=== PATIENT | female | born 1990 | race Caucasian/White ===

== ENCOUNTER 2025-03-11 00:19 | Day surgery (SDC) | payer BC, SELFPAY ==
[2025-03-06 11:50] VITALS: BMI 30.6
--- NOTE | 2025-03-06 12:00 | PC.NURSE ---
Report to the Outpatient Waiting Room, entrance under the green pavilion located off [facility], at time __1130am on date __03/11/25 . Planned Procedure Time: __1:30pm .? Time changes happen often and if your time is changed the preop area will call you the afternoon before. - You and your visitor will be asked to self-screen and do not enter if you have any COVID symptoms. Please call surgeon if you need to reschedule. - A mask is optional within the hospital at this time. Patients may have clear liquids (water, carbonated beverages, clear teas, apple juice) until 3 hours prior to surgery with a maximum of 20 ounces. - No food from midnight until time of surgery and no smoking, or chewing tobacco (or any form of nicotine). No chewing gum, candy or mints. (10:30am) Take only the following medications with a SIP of water on the morning of surgery: ____Fluoxetine, and Levothyroxine DO NOT STOP ANY OF YOUR OTHER PRESCRIPTION MEDICATIONS PRIOR TO SURGERY EXCEPT THE FOLLOWING Hold all vitamins and supplements for 3 days per anesthesiologist. Date of last dose 03/07/25 Medications to discontinue per physician None Date to take last dose None Please no make-up, nail azeri, hairspray, perfume, deodorant, or body powder the day of surgery.? No jewelry (including any body piercings) or valuables the day of surgery, leave them at home.? Please take a shower or bath the night before, or the morning of, surgery with an antibacterial soap.? Wear comfortable, loose fitting clothing.? - Jewelry must be removed prior to entering the operating room.? Rings and piercings that are not removed may be cut off. - The hospital will not accept responsibility for valuables.? - Please leave all valuables, including medications, at home the day of surgery. If you are going home after surgery, a licensed reach lift truck driver must drive you home.? - NO public transportation without another adult if you receive anesthesia. - We recommend that an adult stay with you for 24 hours following discharge. - We also recommend that you do not drive, make important decision, drink alcoholic beverages, or take any drugs that were not prescribed by your health care provider for at least 24 hours after your discharge time. Follow any additional instructions given to you from your surgeon. Telephone instructions given to _Patient and asked if any additional questions and then verbalized understanding. Patient advised to call surgeon office or pre surgery nurse liaison [phone] if any additional questions.
--- OUTSIDE RECORDS SUMMARY | 2025-03-11 00:21 | XMS_ITS | Clinical Summary ---
Author Organization [facility] Address [address] [place] [address] Care Team Providers Care Hemp Fiber Taker Off Name Role Phone Leticia Short NP Primary Care Provider [phone] Allergies Active Allergy Reactions Criticality Noted Date Comments Sulfa Rash Medium 10/15/2024 Medications cholecalciferol (VITAMIN D3) 2,000 unit capsule take 1 cap daily 0 1 Active norethindrone-e.est radioL-iron (Loestrin Fe 10/27, 28-Day,) 1 mg-20 mcg (21)/75 mg (7) per tabletIndications:O ral contraceptive pill surveillance Take 1 tablet by mouth daily 84 tablet 4 1 Active fexofenadine (JOSÉ ANTONIO) 180 mg tablet Take 1 tablet (180 mg total) by mouth daily Active ondansetron ODT (ZOFRAN-ODT) 4 mg disintegrating tabletIndications:N ausea Take 1 tablet (4 mg total) by mouth every 8 (eight) hours as needed for nausea or vomiting 20 tablet 3 4 Active FLUoxetine (PROzac) 20 mg capsuleIndications: Moderate episode of recurrent major depressive disorder (HCC) TAKE 1 CAPSULE BY MOUTH EVERY DAY 90 capsule 1 4 Active fluticasone propionate (FLONASE) 50 mcg/actuation nasal sprayIndications:Se asonal allergies SPRAY 2 SPRAYS INTO EACH NOSTRIL EVERY DAY 48 mL 4 4 Active levothyroxine (SYNTHROID) 100 mcg tabletIndications:A cquired hypothyroidism Take 1 tablet (100 mcg total) by mouth daily 90 tablet 1 4 Active nitrofurantoin monohydrate (MACROBID) 100 mg capsule Take 1 capsule (100 mg total) by mouth 2 (two) times a day 10 capsule 5 Active Active Problems Problem Noted Date Diagnosed Date Moderate episode of recurrent major depressive d isorder 03/17/2024 Overview (03/17/2024): Increase Prozac to 20 mg daily. Follow-up in 1 month. Contact the office with any questions or concerns Class 1 obesity due to exces s calories without serious comorbidity with body mass index (BMI) of 31.0 to 31.9 in adult 06/25/2023 Overview (06/25/2023): Monitor caloric intake. Exercise as tolerated Assessment & Plan (03/17/2024 9:58 AM CDT): Discussed the patients BMI: The BMI is above average BMI management is complete. BMI follow-up includes: Nutrition Counseling and education provided Graves disease 06/22/2023 Lactose intolerance 06/22/2023 Physical exam, annual 06/22/2023 BMI 31.0-31.9,adult 06/22/2023 Assessment & Plan (09/29/2024 8:09 AM BUSINESS ECONOMIST): Discussed the patients BMI: The BMI is above average BMI management is complete. BMI follow-up includes: Nutrition Counseling and education provided Seasonal allergies 06/22/2023 Assessment & Plan (06/25/2023 7:57 AM CDT): This is a significant, separately identifiable problem that was evaluated and managed on the same day as the wellness exam Nausea 06/22/2023 Assessment & Plan (06/25/2023 7:57 AM CDT): This is a significant, separately identifiable problem that was evaluated and managed on the same day as the wellness exam Attention deficit disorder 10/29/2014 Overview (01/13/2017): ADHD Hypothyroidism 07/26/2012 Overview (01/11/2017): Hypothyroidism Hyperthyroidism 10/27/2011 Overview (01/11/2017): Hyperthyroidism Immunizations Immunization Administration Dates Next Due Influenza, Quadrivalent, Rec ombinant, Egg Free, Preservative Free, Intramuscular 07/05/2020 Influenza, Unspecified 09/24/2024(Deferr ed: Patient Refused),10/08/2023(Deferred: Patient Refused),06/22/2023,10/08/2022(Deferre d: Patient Refused),07/22/2022 Tdap 06/22/2023 Medical History Medical History Date Comments Attention deficit disorder 1996 ADHD Graves disease Lactose intolerance Bipolar 2 disorder (HCC) Family History Medical History Relation Name Comments Diabetes Father Diabetes mellit us; Hypertension Father Hypertension; Irritable bowel syndrome Father Irr itable bowel disease; Skin cancer Mother Other Other 1 No family histo ry of Cancer, breast; Cervical cancer Other 2 MGGM Cancer, cerv ical; Relation Name Status Comments Father Alive Mother Alive Other 1 Other 2 MGGM Social History Tobacco Use Types Packs/Day Years Used Date Smoking Tobacco: Every Day Vaping Smokeless Tobacco: Never Alcohol Use Standard Drinks/Week Comments Yes 0 (1 standard drink = 0.6 oz pur e alcohol) PHQ-2 Answer Date Recorded PHQ-2 Total Score (If total score is 3 or more points, staff should administer the PHQ-9) 0 09/29/2024 PHQ-9 Answer Date Recorded PHQ-9 Total Score 14 03/17/2024 Comments No Sex and Gender Information Value Date Recorded Sex Assigned at Not on file Legal Sex Female 1:31 PM BUSINESS ECONOMIST Gender Identity Female 07/16/2023 4:28 PM CDT Sexual Orientation Bisexual 07/16/2023 4: 28 PM CDT 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 Not on f ile Not on file Obstetrics History Para Term AB IAB SAB Ectopic Multiple Livin g Live Births 0 0 0 0 0 0 0 0 0 0 0 Last Filed Vital Signs Vital Sign Reading Time Taken Comments Blood Pressure 110/60 09/29/2024 8:06 AM BUSINESS ECONOMIST Pulse 67 09/29/2024 8:06 AM BUSINESS ECONOMIST Temperature 36.6 C (97.9 F) 09/29/2024 8:06 AM BUSINESS ECONOMIST Respiratory Rate 16 11/29/2018 7:05 PM BUSINESS ECONOMIST Oxygen Saturation 96% 09/29/2024 8:06 AM BUSINESS ECONOMIST Inhaled Oxygen Concentration - - Weight 82.6 kg (182 lb) 09/29/2024 8:06 AM BUSINESS ECONOMIST Height 162.6 cm (5' 4) 09/29/2024 8:06 AM BUSINESS ECONOMIST Body Mass Index 31.24 09/29/2024 8:06 AM BUSINESS ECONOMIST Plan of Treatment Health Maintenance Due Date Last Done Comments Varicella Vaccines (1 of 2 - 13+ 2-dose series) 2004 Hepatitis B Screening 2009 Pneumococcal vaccine <65 (1 of 2 - PCV) 2010 Cervical Cancer Screening 11/20/20232022, 10/13/2020, 11/06/2019, Additional history exists Covid-19 Vaccine ( season) 2024 12/21/2020, 12/02/2020 Influenza Vaccine (Season Ended) 2025 06/22/2023, 07/22/2022, 07/05/2020 Depression Screening 09/29/2025 09/29/2024, 03/17/2024, 03/17/2024, Additional history exists Regular Well Visit/Exam 18-64 09/29/2025 09/29/2024, 06/22/2023, 10/13/2020, Additional history exists DTaP/Tdap/Td Vaccine (2 - Td or Tdap) 06/22/2033 06/22/2023 Hepatitis C Screening Completed 12/30/2015 HPV Vaccines Aged Out No longer eligi ble based on patient's age to complete this topic Procedures Procedure Name Priority Date/Time Associated Diagnosis Comments THINPREP IMAGING PAP REFLEX HPV MRNA E6/E7 Routine 10/13/2020 12:00 AM BUSINESS ECONOMIST SERUM HEPATITIS C AB Routine 12/30/2015 11:05 AM CDT from Last 3 Months or Most Recently Relevant to Health Maintenance Results * ThinPrep Imaging Pap Reflex HPV mRNA E6/E7 (10/13/2020 12:00 AM BUSINESS ECONOMIST) CLINICAL INFORMATION: Jodie HardyRiddhiMarisela payne Ra Comment:Information not prov ided LMP Jodie HardyRiddhiMarisela elmer Knapp Comment: Previous Pap Jodie HardyLemuel Knapp Comment:Information not prov ided Prev. Bx Jodie AntonyRiddhiMarisela elmer Knapp Comment:Information not prov ided SOURCE: Jodie Knapp Comment:Cervix, Endocervix Pap, specimen adequacy Jodie AntonyLemuel Knapp Comment: Satisfactory for evaluation. Endocervical/transformation zone component absent. HPV interp Jodie HardyRiddhiMarisela elmer Knapp Comment:Negative for intraep ithelial lesion or malignancy. COMMENTS Jodie HardyLemuel Knapp Comment: This Pap test has been evaluated with computer assisted technology. Embedded Software Test Engineer [facility] st HardyRiddhiMarisela elmer Knapp Comment: MVB, CT(ASCP) CT screening location: [place] [address] [place] [address] Comment Jodie AntonyLemuel Knapp Comment: EXPLANATORY NOTE: The Pap is a screening test for cervical cancer. It is not a diagnostic test and is subject to false negative and false positive results. It is most reliable when a satisfactory sample, regularly obtained, is submitted with relevant clinical findings and history, and when the Pap result is evaluated along with historic and current clinical information. 10/13/2020 10/14/2020 4:2 5 AM BUSINESS ECONOMIST Narrative [facility] - 10/14/2020 4:39 PM BUSINESS ECONOMIST FASTING: UNKNOWN Result [facility] Aubree Nelson MD LAB PATHOLOGY ORDERAB LES Final Result Performing Organization Address [facility] Co de Phone Number [facility] Jodie [facility] [address] [place] [address] * Serum Hepatitis C ab (12/30/2015 11:05 AM CDT) Pathologist [facility] HCV ab Negative Negative HISTORICAL RESULTS Serum 12/30/2015 11:0 5 AM CDT Aubree Nelson MD LAB BLOOD ORDERABLES Final Result Performing Organization Address City/[facility] Co de Phone Number HISTORICAL RESULTS from Last 3 Months or Most Recently Relevant to Health Maintenance Insurance [facility] Care Teams Hemp Fiber Taker Off Relationship Specialty Start Date End Date Leticia Short NP [address] [facility] [address] [place] [address] PCP - General Internal Medicine 06/22/23
--- OUTSIDE RECORDS SUMMARY | 2025-03-11 00:21 | XMS_ITS | Referral Summary ---
Author Organization [facility] Address [address] [place] [address] Care Team Providers Care Business Employment Specialist Name Role Phone Leticia Short NP Primary Care Provider [phone] Allergies Active Allergy Reactions Criticality Noted Date [...] 06/22/2023 Assessment & Plan (09/29/2024 8:09 AM GENERAL SURGEON): Discussed the patients BMI: The BMI is [...] Patient Refused),06/22/2023,10/08/2022(Deferre d: Patient Refused),07/22/2022 Tdap 06/22/2023 Social History Tobacco Use Types Packs/Day Years [...] on file Legal Sex Female 1:31 PM GENERAL SURGEON Gender Identity Female 07/16/2023 4:28 PM CDT Sexual Orientation Bisexual 07/16/2023 4: 28 PM CDT 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 Not on f ile Not on file Last Filed Vital Signs Vital Sign Reading Time Taken Comments Blood Pressure 110/60 09/29/2024 8:06 AM GENERAL SURGEON Pulse 67 09/29/2024 8:06 AM GENERAL SURGEON Temperature 36.6 C (97.9 F) 09/29/2024 8:06 AM GENERAL SURGEON Respiratory Rate 16 11/29/2018 7:05 PM GENERAL SURGEON Oxygen Saturation 96% 09/29/2024 8:06 AM GENERAL SURGEON Inhaled Oxygen Concentration - - Weight 82.6 kg (182 lb) 09/29/2024 8:06 AM GENERAL SURGEON Height 162.6 cm (5' 4) 09/29/2024 8:06 AM GENERAL SURGEON Body Mass Index 31.24 09/29/2024 8:06 AM GENERAL SURGEON Plan of Treatment Not on file Procedures Procedure Name Priority Date/Time Associated Diagnosis Comments THINPREP IMAGING PAP REFLEX HPV MRNA E6/E7 Routine 10/13/2020 12:00 AM GENERAL SURGEON SERUM HEPATITIS C AB Routine 12/30/2015 11:05 AM CDT from Last 3 Months or Most Recently Relevant to Health Maintenance Results * ThinPrep Imaging Pap Reflex HPV mRNA E6/E7 (10/13/2020 12:00 AM GENERAL SURGEON) CLINICAL INFORMATION: Jodie Knapp Comment:Information not prov ided LMP Jodie Knapp Comment: Previous Pap Jodie Knapp Comment:Information not prov ided Prev. Bx Jodie Knapp Comment:Information not prov ided SOURCE: Jodie Knapp Comment:Cervix, Endocervix Pap, specimen adequacy Jodie Knapp Comment: Satisfactory for evaluation. Endocervical/transformation zone component absent. HPV interp Jodie Knapp Comment:Negative for intraep ithelial lesion or malignancy. COMMENTS Jodie Knapp Comment: This Pap test has been evaluated with computer assisted technology. Hand Tube Bender [facility] st Alexy Knapp Comment: MVB, CT(ASCP) CT screening location: [place] [address] [address] [place] [address] Comment Jodie Knapp Comment: EXPLANATORY NOTE: The Pap is [...] clinical information. 10/13/2020 10/14/2020 4:2 5 AM GENERAL SURGEON Narrative [facility] - 10/14/2020 4:39 PM GENERAL SURGEON FASTING: UNKNOWN us Aubree Nelson MD LAB PATHOLOGY ORDERAB LES Final Result [facility] [place] [address] [address] [place] [phone] * Serum Hepatitis C ab (12/30/2015 11:05 AM CDT) HCV ab Negative Negative HISTORICAL RESULTS Serum 12/30/2015 11:0 5 AM CDT Aubree Nelson MD LAB BLOOD ORDERABLES Final Result HISTORICAL RESULTS from Last 3 Months or Most Recently Relevant to Health Maintenance [facility] Care Teams Business Employment Specialist Relationship Specialty Start Date End Date Leticia Short NP [address] [facility] [address] [place] [address] PCP - General Internal Medicine 06/22/23
--- OUTSIDE RECORDS SUMMARY | 2025-03-11 00:21 | XMS_ITS | Clinical Summary ---
Author Organization [facility] Address [address] [place] [address] Care Team Providers Care Staff Pharmacist Hospital Name Role Phone Kaleb Foster MD Primary Care Provider [phone] Source Comments [facility],non-owned Affiliates and Associated Physician Practices is amultiple site organization consisting of ambulatory clinics and hospital sitesin [place], [place], [place] and [place]. This disclosure is being madepursuant to the Care Everywhere program and may not contain all information available regarding this patient. Last updated 18.[facility] [employer] Allergies No known active allergies Social History Tobacco Use Types Packs/Day Years Used Date Smoking Tobacco: Never Smokeless Tobacco: Never Alcohol Use Standard Drinks/Week Comments Yes 0 (1 standard drink = 0.6 oz pur e alcohol) rare Comments Unknown Sex and Gender Information Value Date Recorded Sex Assigned at Not on file Legal Sex Female 9:30 AM CDT Gender Identity Not on file Sexual Orientation Not on file Last Filed Vital Signs Vital Sign Reading Time Taken Comments Blood Pressure 110/72 02/15/2018 10:40 AM CDT Pulse 78 02/15/2018 10:40 AM CDT Temperature 37.5 C (99.5 F) 02/15/2018 10:40 AM CDT Respiratory Rate - - Oxygen Saturation - - Inhaled Oxygen Concentration - - Weight 65.8 kg (145 lb) 02/15/2018 10:40 AM CDT Height 162.6 cm (5' 4) 02/15/2018 10:40 AM CDT Body Mass Index 24.89 02/15/2018 10:40 AM CDT Plan of Treatment Health Maintenance Due Date Last Done Comments HIV SCREENING 2006 HEPATITIS C SCREENING 09/30/2009 DTAP/TDAP/TD VACCINES (1 - Tdap) 2010 HEPATITIS B VACCINE (1 of 3 - 19+ 3-dose series) 2010 COVID-19 VACCINE (1 - 2023-2 5 season) 2024 DEPRESSION SCREENING 10/08/2024 INFLUENZA VACCINE (Season Ended) 2025 ZOSTER VACCINE (1 of 2) 2041 HIB VACCINE Aged Out No longer eligi ble based on patient's age to complete this topic HPV VACCINE Aged Out No longer eligi ble based on patient's age to complete this topic MENINGOCOCCAL (Group B) VACC INE SHARED DECISION-MAKING Aged Out No longer eligibl e based on patient's age to complete this topic MENINGOCOCCAL GROUPS A/C/Y/W VACCINE Aged Out No longer eligible b ased on patient's age to complete this topic PNEUMOCOCCAL VACCINE Aged Out No long er eligible based on patient's age to complete this topic Insurance [place] [address] Care Teams Staff Pharmacist Hospital Relationship Specialty [place] [address] [facility] [place] [address] PCP - General Internal Medicine 02/15/18
--- NOTE | 2025-03-11 08:37 | PM.IMHP ---
H&P: HPI History of Present Illness Date/Time: 03/11/25 08:37 Chief Complaint: Miscarriage Narrative: 34 y/o G1 with unknown LMP. Ultrasound exam in office showed coronel IUP with CRL consistent with 7w1d gestation, with no cardiac motion. She has not had any bleeding. She desires surgical management. Review of Systems Review of Systems: All systems reviewed & are unremarkable except as noted in HPI and below PMFSH Past Medical History Medical History History of Graves' disease History of depression Social History Social History Smoking status: Never smoker Alcohol intake: current Drinks per week: 1 Alcohol use details: 1-2 month Substance use: current Substance use type: marijuana Other substance usage details: smoke and gummies off and on weekly Living arrangements: with family Additional living arrangements comments: Spiritual care concerns: No Meds Home Medications and Allergies Home Medications ?Medication ?Instructions ?Recorded ?Confirmed ?Type fluoxetine 20 mg capsule 20 mg PO DAILY 03/06/25 03/06/25 History levothyroxine 100 mcg tablet 100 mcg PO DAILY 03/06/25 03/06/25 History vitamin D3 94.38 mcg (3,775 1 cap PO DAILY 03/06/25 03/06/25 History unit)-folic acid 1 mg capsule (Folic D3) Allergies Allergy/AdvReac Type Severity Reaction Status Date / Time Sulfa (Sulfonamide Allergy Severe rash Verified 03/06/25 11:46 Antibiotics) Exam Const: Orientation/consciousness: patient oriented x3 Other: Well-developed, well-nourished female in no acute distress. Neck: Thyroid: thyroid normal Lymphatic: no lymphadenopathy noted (in neck, axilla or inguinal nodes) Resp: Effort & Inspection: normal respiratory effort Auscultation: clear to auscultation bilaterally Cardio: Rate: regular rate Rhythm: regular rhythm Heart sounds: S1 normal heart sound present and S2 normal heart sound present GI: Other: ABD: Soft, nontender, nondistended. No guarding or rebound tenderness. No hepatosplenomegaly. : General: Yes no CVA tenderness Other: External genitalia: normal female hair distribution, without lesion. Urethral meatus: no lesion, non prolapsed. Bladder: no mass, nontender Vagina: well-estrogenized, without lesion or discharge. No cystocele or rectocele. Cervix: no lesion or discharge. Uterus: small, anteverted, freely mobile, nontender Adnexa: no mass or tenderness. Anus/perineum: no lesions, nontender Back/Spine/Pelvis: Back: no CVA tenderness Skin: General skin exam: normal color and no rashes or lesions noted Neuro: General: patient oriented x3 Extrem: Other: Extremities: nontender with no edema Psych: Mental Status: mental status grossly normal Affect: normal affect Assessment and Plan Assessment and plan (1) Missed : Code(s): O02.1 - Missed Status: Acute Assessment and Plan: A: Missed spontaneous . P: Offered medical as well as surgical management. She prefers the latter. Specifically, I have offered dilation and suction curettage. She understands risks of surgery to include risks of anesthesia, risks of pain, infection, bleeding, blood products, thromboembolic phenomena and damage to adjacent structures such as bowel, bladder, ureters, blood vessels and nerves. She understands all these risks and elects to proceed with surgery.
[2025-03-11] MEDS: ACETAMINOPHEN 500 MG TABLET 1000 MG PO (12:44)
[2025-03-11 12:45] VITALS: BP 113/63; PULSE 78; RESP 16; TEMP 37.1; O2SAT 98
--- NOTE | 2025-03-11 13:59 | P.PNAN_ITS ---
Anes - Initial Pre Proc Eval Procedure: Operation Date: 03/11/25 13:30 Proposed Procedures p Suction Dilatation and Curettage - John Fox MD Date/Time: 03/11/25 13:59 Surgeon: John Fox MD Pre Op Diagnosis: missed AB Patient Data Age: 34 Gender: F Height: 1.63 m Weight: 85.4 kg Last Vital Signs Temp 37.1 C 03/11/25 12:45 Pulse 78 03/11/25 12:45 Resp 16 03/11/25 12:45 BP 113/63 03/11/25 12:45 Pulse Ox 98 03/11/25 12:45 O2 Del Method Room Air 03/11/25 12:45 Allergies Allergy/AdvReac Type Severity Reaction Status Date / Time Sulfa (Sulfonamide Allergy Severe rash Verified 03/11/25 12:41 Antibiotics) Home Medications ?Medication ?Instructions ?Recorded ?Confirmed ?Type fluoxetine 20 mg capsule 20 mg PO DAILY 03/06/25 03/06/25 History levothyroxine 100 mcg tablet 100 mcg PO DAILY 03/06/25 03/06/25 History vitamin D3 94.38 mcg (3,775 1 cap PO DAILY 03/06/25 03/06/25 History unit)-folic acid 1 mg capsule (Folic D3) Laboratory Tests 03/11/25 12:02 Blood Type O Positive Antibody Screen Negative Doses of RhIg Required 0 Patient hx anesthesia problems: none Family hx anesthesia problems: none Results Review: All pre-operative results and documents have been reviewed as part of the pre-operative evaluation. [facility] Past Medical History Medical History History of Graves' disease History of depression Social History Social History Smoking status: Never smoker Alcohol intake: current Drinks per week: 1 Alcohol use details: 1-2 month Substance use: current Substance use type: marijuana Other substance usage details: smoke and gummies off and on weekly Living arrangements: with family Additional living arrangements comments: Spiritual care concerns: No Anes - Eval Final PreProcedure Day of Procedure 03/11/25 13:59 Patient weight: obese Heart: regular rate and rhythm Lungs: clear to auscultation Airway: Mallampati scale class II Neurological: alert and oriented Last oral intake: >/= 8 hours ASA classification: II Emergent: no Anesthetic plan: proceed Anesthesia type and monitoring: general GIVS and standard monitoring Results Review: All pre-operative results and documents have been reviewed as part of the pre- operative evaluation. Informed Consent: The patient's anesthetic plan and its attendant risks and benefits were discussed with the patient/family/POA. Questions were solicited and answers provided to the satisfaction of the patient/family/POA.
--- NOTE | 2025-03-11 14:00 | WPDHPUPDATE1 ---
History and Physical Update Update Date/Time: 03/11/25 14:00 History and Physical has been reviewed, including an updated exam of the patient. There are NO changes in the patient's condition. Risks, benefits, and alternatives have been discussed and questions answered. Patient agrees to proceed with procedure.
[2025-03-11] MEDS: LIDOCAINE 1% BUFFERED WITH 8.4% SODIUM BICARB 1 ML SYRINGE 10 ML INFILTRATE (14:19)
--- NOTE | 2025-03-11 14:20 | S_PTH ---
PATIENT: Tevin Hamilton LOC: [facility] U#:[id number] AGE/SX: 34/F ROOM: RE03/11/[address]: John Fox MD : 1990 BED: DIS: 03/11/2025 SPEC #: [id number] RECD: 03/12/25 07:53 STATUS: CONNER REQ #: [id number] ANTONIA: 03/11/25 14:[address]: John Fox DEPT: [facility] Surgical RECD BY: Virginia Jackson ENTERED: 03/12/25 07:53 SP TYPE: Surgical OTHR DR: Leticia Short, SA[facility] [employer] FUSER CIRCULAR Tissues: A - Products of Conception Procedures: Hematoxylin and Eosin Stain Gross and Microscopic Level 4
[2025-03-11 14:50] VITALS: BP 95/51; PULSE 64; RESP 14; O2SAT 100
[2025-03-11] MEDS: LACTATED RINGERS 1,000 ML 30 ML IV CONT (14:50)
--- NOTE | 2025-03-11 14:51 | W.PM.PROC2 ---
Procedure Note - Detailed Date of Procedure 03/11/25 Pre-op Diagnosis Missed AB Post-op Diagnosis Same Procedure Performed Dilation and suction D&C Surgeon John Fox MD Anesthesia MAC and Local (1% lidocaine) Findings POC noted Description of Procedure The patient was taken to the operating room where she was prepared and draped in the usual sterile fashion in the dorsal lithotomy position. The bladder was drained with a red rubber catheter. A sterile speculum was placed into the vagina. The anterior lip of the cervix was grasped with a single-tooth tenaculum. Ten mL of 1% lidocaine was administered in a paracervical block. The cervix was gently dilated using Hegar dilators until an 8mm dilator could be passed. The 8mm curved tip suction curette was advanced. Suction curettage was performed and products of conception were aspirated. Sharp curettage was then performed until a good uterine cry was noted. A final pass with the suction curette was made. The tenaculum was removed. Hemostasis was excellent. Sponge, lap, needle and instrument counts were correct. The patient was taken to the recovery room in stable condition. I was present and scrubbed for the entire procedure. Estimated Blood Loss 50 Drains No Packing No Pathology Yes (Endometrial curettings) Complications None Condition Stable Disposition PACU
[2025-03-11 15:20] VITALS: BP 101/59; PULSE 53; RESP 14
[2025-03-11 15:45] VITALS: BP 95/63; PULSE 52; RESP 14
== END 2025-03-11 15:52 | disposition home or self-care (01) ==
PROVIDERS: PCP Nurse Practitioner Family; Visit Provider Obstetrics & Gynecology
PROC: (CPT 59820; principal; 2025-03-11 13:30)
DX: O02.1 Missed abortion (principal); G89.18 Other acute postprocedural pain; E05.00 Thyrotoxicosis with diffuse goiter without thyrotoxic crisis or storm; F32.A Depression, unspecified; F12.90 Cannabis use, unspecified, uncomplicated
CPT/HCPCS: 59820; 36415; 85461; 86850; 86900; 86901; 88305; A9270; J1885; J2003; J2250; J2704; J7120